=== PATIENT | male | born 1970 | race Caucasian/White ===

== ENCOUNTER 2020-12-19 16:31 | Emergency (ER) | payer OTHER | END 2020-12-19 18:18 | disposition home or self-care (01) | LOC: FER 16:31 | DX: S00.03XA Contusion of scalp, initial encounter (principal); I10 Essential (primary) hypertension; W01.10XA Fall on same level from slipping, tripping and stumbling with subsequent striking against unspecified object, initial encounter; Y92.410 Unspecified street and highway as the place of occurrence of the external cause | CPT/HCPCS: 70450 ==

== ENCOUNTER 2021-02-07 10:44 | Emergency (ER) | payer OTHER ==
[2021-02-07] MEDS ORDERED: ROBAXIN750 MG PO (13:01)
[2021-02-07] MEDS ORDERED: MEDROL 4MG DOSEP4 MG PO (13:01)
[2021-02-07] MEDS ORDERED: NAPROXEN500 MG PO (13:01)
== END 2021-02-07 13:15 | disposition home or self-care (01) ==
LOC: FER 10:44
DX: S39.012A Strain of muscle, fascia and tendon of lower back, initial encounter (principal); S70.02XA Contusion of left hip, initial encounter; M47.817 Spondylosis without myelopathy or radiculopathy, lumbosacral region; I10 Essential (primary) hypertension; W10.1XXA Fall (on)(from) sidewalk curb, initial encounter; Y92.009 Unspecified place in unspecified non-institutional (private) residence as the place of occurrence of the external cause
CPT/HCPCS: 72131; 72192

== ENCOUNTER 2022-05-30 10:12 | Day surgery (SDCO) | payer MEDICARE, OTHER ==
[~2022-05-30] VITALS: Ht 188 cm; Wt 98.1 kg
[~2022-05-30 10:12] MED LIST: MEDROL 4MG DOSEP4 MG PO; NAPROXEN500 MG PO; ROBAXIN750 MG PO
[2022-05-30 12:36] LABS: BASOPHIL 0.5 % (0-2); EOSINOPHIL 1.1 % (0-5); HCT 42.2 % (42.0-52.0); HGB 13.9 g/dl (13.2-18.0); LYMPHOCYTE 17.5 % (15-48); MCH 29.1 pg (25.0-31.0); MCHC 32.9 g/dL (32.0-36.0); MCV 88.5 fL (78.0-100.0); MPV 10.9 fL (6.0-9.5); NEUTROPHIL 60.4 % (41-80); NRBC 0; PLT 165 K/uL (150-400); RBC 4.77 M/uL (4.70-6.00); RDW 13.7 % (11.5-14.0); WBC 3.7 K/uL (4.0-10.5)
[2022-05-30 12:59] LABS: ALBUMIN 3.2 g/dL (3.4-5.0); BILIRUBIN - TOTAL 0.7 mg/dL (0.2-1.0); BUN/CREAT RATIO (CALC) 8.3 RATIO; CREATININE 1.32 mg/dL (0.67-1.17); GLOBULIN (CALCULATION) 3.3 g/dL; MAGNESIUM 1.9 mg/dL (1.8-2.4); TOTAL PROTEIN 6.5 g/dL (6.4-8.2)
[2022-05-30 13:01] LABS: LACTIC ACID 0.8 mmol/L (0.4-1.9)
[2022-05-30 13:17] LABS: BILIRUBIN NEGATIVE (NEGATIVE); BLOOD NEGATIVE Ery/uL (NEGATIVE); CLARITY CLEAR (CLEAR); COLOR YELLOW (YELLOW); GLUCOSE (U) NORMAL (NORMAL); LEUKOCYTES NEGATIVE Leu/uL (NEGATIVE); NITRITE NEGATIVE (NEGATIVE); PROTEIN NEGATIVE (NEGATIVE); SPECIFIC GRAVITY >=1.030 (1.001-1.030); UROBILINOGEN 0.2 mg/dL (0.2-1.0)
[2022-05-30] MEDS ORDERED: IMITREX50 MG PO (16:22)
[2022-05-30] MEDS ORDERED: NORVASC5 MG PO (16:23)
[2022-05-30] MEDS ORDERED: SYNTHROID50 MCG PO (16:23)
[2022-05-30] MEDS ORDERED: PRINIVIL10 MG PO (16:23)
[2022-05-30] MEDS ORDERED: CARBIDOPA-LEVO1 EAC6 PO (16:24)
[2022-05-30] MEDS ORDERED: HUMIRA10 MG/0.1 IM (16:54)
[2022-05-30] MEDS ORDERED: ZOLOFT50 MG PO (16:59)
[2022-05-31 07:06] LABS: HCT 39.7 % (42.0-52.0); MCH 29.2 pg (25.0-31.0); MCHC 32.7 g/dL (32.0-36.0); MCV 89.2 fL (78.0-100.0); MPV 10.8 fL (6.0-9.5); RBC 4.45 M/uL (4.70-6.00)
[2022-05-31 07:25] LABS: BUN/CREAT RATIO (CALC) 10.5 RATIO; CREATININE 1.24 mg/dL (0.67-1.17)
--- NOTE | 2022-05-31 11:48 | NUR ---
05/31/22 A social assessment was conducted with Mr. Scanlon. FAUSTO Pereyra, validated the assessment. Mr. Scanlon lives alone. He has a rw, cane, and rails in the bathroom. He does not use the cane or rw. A caregiver visits the home 3 - 4 times per day to assist with housekeeping, meals, and laundry. [employer]M [place] assist with transportation, grocery shopping, and managing his affairs. - Mr. Scanlon goes to [facility] 2 times per week for counseling and group therapy. - Mr. Scanlon has visual deficits. - Therapy recommended PT through . - A referral was made to [facility] per POA's choice. [facility] was the first choice and do not currently have PT. - Ms. Fenton was educated to services through the [facility].
== END 2022-05-31 13:26 | disposition home health service (06) ==
LOC: FER 10:12 → FMS 14:19
PROVIDERS: Emergency Medicine; ADMIT Family Medicine
DX: G20 Parkinson's disease (principal); R53.1 Weakness; R29.6 Repeated falls; U07.1 COVID-19; N17.9 Acute kidney failure, unspecified; R47.02 Dysphasia; I10 Essential (primary) hypertension; Z66 Do not resuscitate; Z79.899 Other long term (current) drug therapy
CPT/HCPCS: 36415; 70450; 71250; 72128; 72131; 72170; 80048; 80053; 81003; 83605; 83735; 84145; 85025; 87040; 87088; 93005; 94010; 97162; 97165; 97530-GP; 97535; G0378; J1650; J7030; U0002